=== PATIENT | male | born 1970 | race Caucasian/White ===

== ENCOUNTER 2020-01-01 13:01 | Inpatient (IN) | payer MEDICAID, OTHER ==
[~2020-01-01] VITALS: Ht 175.3 cm; Wt 96.2 kg
[2020-01-01] MEDS ORDERED: NITROGLYCERIN 0.4MG TABLET SL SL PRN (14:15)
[2020-01-01] MEDS ORDERED: ASPIRIN 81MG TABLET PO ONE (14:15)
[2020-01-01 14:50] LABS: BASOPHILS % 0.5 % (0.0-2.0); HEMATOCRIT. 40.4 % (42.0-52.0); HEMOGLOBIN. 14.2 g/dL (14.0-18.0); LYMPHOCYTES % 7.2 % (20.0-50.0); MEAN CORPUSCULAR HEMOGLOBIN 33.4 pg (28.0-32.0); MEAN CORPUSCULAR VOLUME 94.8 fL (80.0-94.0); MONOCYTES % 6.9 % (2.0-8.0); NEUTROPHILS % 85.4 % (40.0-76.0); PLATELET 215 x1000/uL (130-400); RED BLOOD CELL COUNT 4.26 mill/uL (4.7-6.1); RED CELL DISTRIBUTION WIDTH 13.1 % (11.6-14.6)
[2020-01-01 14:55] LABS: CHLORIDE 100 mEq/L (98-107)
[2020-01-01] MEDS ORDERED: AZITHROMYCIN 500 MG in DEXT 5% WATER 250 ML IV STA (14:58)
[2020-01-01] MEDS ORDERED: SODIUM CHLORIDE 0.9% 1000ML BAG (SEPSIS BOLUS) IV ONE (15:00)
[2020-01-01] MEDS ORDERED: POTASSIUM CHLORIDE 20MEQ TABLET SR PO ONE (15:30)
[2020-01-01] MEDS ORDERED: OSELTAMIVIR 75MG CAPSULE PO ONE (16:00)
[2020-01-01] MEDS ORDERED: MORPHINE SULFATE 2 MG/ML CPJ (NOT FOR IM USE) IV ONE (16:00)
[2020-01-01] MEDS ORDERED: ONDANSETRON HCL 4MG/2ML INJ IV PRN (16:45)
[2020-01-01 18:08] LABS: CLARITY URINE CLEAR (CLEAR); COLOR URINE ORANGE (YELLOW); KETONES URINE 2+ (NEGATIVE); LEUKOCYTE ESTERASE URINE 1+ (NEGATIVE); NITRITE URINE POSITIVE (NEGATIVE); OCCULT BLOOD URINE NEGATIVE (NEGATIVE); PH URINE 5.5 (4.5-8.0); PROTEIN URINE 2+ (NEGATIVE); SPECIFIC GRAVITY URINE 1.031 (1.005-1.030)
[2020-01-01] MEDS ORDERED: VANCOMYCIN 1500MG in DEXTROSE 5% WATER 250ML IV NR (20:00)
[2020-01-01 20:20] VITALS: BP 104/65
[2020-01-01] MEDS: SODIUM CHLORIDE 0.9% 1,000 ML IV SCH (21:55)
[2020-01-01] MEDS: HEPARIN 5000 UNITS/ML VIAL SUBCUT SCH (21:56)
[2020-01-01] MEDS: PIPERACILLIN/TAZOBACTAM 3.375 G in DEXT 5% WATER 100 ML IV SCH (22:02)
[2020-01-02 00:05] VITALS: BP 112/73
[2020-01-02] MEDS: PIPERACILLIN/TAZOBACTAM 3.375 G in DEXT 5% WATER 100 ML IV SCH ×5 (03:05→21:31)
[2020-01-02] MEDS: ACETAMINOPHEN 325MG TABLET PO PRN (03:06)
[2020-01-02] MEDS ORDERED: VANCOMYCIN 1,000 MG in DEXT 5% WATER 250 ML IV SCH (04:00)
[2020-01-02 04:02] VITALS: BP 106/53
[2020-01-02] MEDS: SODIUM CHLORIDE 0.9% 1,000 ML IV SCH ×2 (05:10→15:02)
[2020-01-02 08:00] VITALS: BP 121/73
[2020-01-02] MEDS: HEPARIN 5000 UNITS/ML VIAL SUBCUT SCH ×2 (08:50→21:29)
[2020-01-02 11:55] LABS: BASOPHILS % 0.2 % (0.0-2.0); EOSINOPHILS % 0.1 % (0.0-5.0); HEMATOCRIT. 35.7 % (42.0-52.0); HEMOGLOBIN. 12.6 g/dL (14.0-18.0); LYMPHOCYTES % 9.2 % (20.0-50.0); MEAN CORPUSCULAR HEMOGLOBIN 33.4 pg (28.0-32.0); MEAN CORPUSCULAR VOLUME 94.6 fL (80.0-94.0); MONOCYTES % 6.8 % (2.0-8.0); NEUTROPHILS % 83.7 % (40.0-76.0); PLATELET 222 x1000/uL (130-400); RED BLOOD CELL COUNT 3.77 mill/uL (4.7-6.1); RED CELL DISTRIBUTION WIDTH 12.7 % (11.6-14.6)
[2020-01-02 12:00] VITALS: BP 109/60
[2020-01-02 12:00] LABS: CHLORIDE 105 mEq/L (98-107)
[2020-01-02 12:06] LABS: LDL CHOLESTEROL 67 mg/dL (5-100)
[2020-01-02 12:09] LABS: HDL CHOLESTEROL 21 mg/dL (40-59)
[2020-01-02] MEDS: VANCOMYCIN 1,000 MG in DEXT 5% WATER 250 ML IV SCH ×2 (15:01→22:53)
[2020-01-02 16:00] VITALS: BP 116/70
[2020-01-02] MEDS: ASCORBIC ACID 500 MG TABLET PO SCH (21:26)
[2020-01-02] MEDS: HYDROXYCHLOROQUINE SULFATE 200MG TABLET PO SCH (21:26)
[2020-01-02] MEDS ORDERED: PIPERACILLIN/TAZOBACTAM 3.375 G in DEXT 5% WATER 100 ML IV SCH (22:30)
[2020-01-03] VITALS: BP 101/62
[2020-01-03] MEDS: ACETAMINOPHEN 325MG TABLET PO PRN (00:58)
[2020-01-03] MEDS: PIPERACILLIN/TAZOBACTAM 3.375 G in DEXT 5% WATER 100 ML IV SCH ×2 (02:56→09:28)
[2020-01-03 04:00] VITALS: BP 103/65
[2020-01-03 06:07] LABS: CHLORIDE 105 mEq/L (98-107)
[2020-01-03 06:18] LABS: BASOPHILS % 0.2 % (0.0-2.0); EOSINOPHILS % 0.2 % (0.0-5.0); HEMATOCRIT. 36.6 % (42.0-52.0); HEMOGLOBIN. 12.8 g/dL (14.0-18.0); LYMPHOCYTES % 12.3 % (20.0-50.0); MEAN CORPUSCULAR HEMOGLOBIN 33.2 pg (28.0-32.0); MEAN CORPUSCULAR VOLUME 94.6 fL (80.0-94.0); MEAN PLATELET VOLUME 8.1 fl (7.4-10.4); MONOCYTES % 9.4 % (2.0-8.0); NEUTROPHILS % 77.9 % (40.0-76.0); PLATELET 239 x1000/uL (130-400); RED BLOOD CELL COUNT 3.87 mill/uL (4.7-6.1)
[2020-01-03 06:21] LABS: VANCOMYCIN TROUGH 7.7 ug/mL (5.0-10.0)
[2020-01-03] MEDS: VANCOMYCIN 1,000 MG in DEXT 5% WATER 250 ML IV SCH (06:47)
[2020-01-03 08:00] VITALS: BP 114/57
[2020-01-03] MEDS: HYDROXYCHLOROQUINE SULFATE 200MG TABLET PO SCH ×2 (09:22→20:54)
[2020-01-03] MEDS: ASCORBIC ACID 500 MG TABLET PO SCH ×4 (09:22→17:49)
[2020-01-03] MEDS: HEPARIN 5000 UNITS/ML VIAL SUBCUT SCH ×2 (09:22→20:54)
[2020-01-03] MEDS: SODIUM CHLORIDE 0.9% 1,000 ML IV SCH (09:23)
[2020-01-03] MEDS: ZINC SULFATE 220 MG ( 50 ) CAPSULE PO SCH (09:23)
[2020-01-03] MEDS ORDERED: AZITHROMYCIN 500 MG TABLET PO NR (10:00)
[2020-01-03] MEDS ORDERED: POTASSIUM CHLORIDE 20MEQ/PACKET PO NR (10:30)
[2020-01-03] MEDS ORDERED: GUAIFENESIN-DM 200MG-20MG/10ML UDC PO PRN (11:15)
[2020-01-03 12:00] VITALS: BP 130/62
[2020-01-03 13:11] LABS: CREATINE KINASE MB FRACTION < 1.0 ng/mL (0.5-3.6)
[2020-01-03] MEDS: THIAMINE HCL 200 MG in SODIUM CHLORIDE 0.9% 98 ML IV SCH ×2 (13:17→16:38)
[2020-01-03] MEDS: CEFTRIAXONE 1 G PREMIX 50 ML IV SCH (13:18)
[2020-01-03 16:00] VITALS: BP 137/94
[2020-01-03 20:00] VITALS: BP 115/67
[2020-01-04] VITALS (7 sets, daily range): BP systolic 97–115; BP diastolic 54–77
[2020-01-04] MEDS: ASCORBIC ACID 500 MG TABLET PO SCH ×5 (01:23→23:40)
[2020-01-04 06:37] LABS: BASOPHILS % 0.1 % (0.0-2.0); EOSINOPHILS % 0.9 % (0.0-5.0); HEMATOCRIT. 41.3 % (42.0-52.0); HEMOGLOBIN. 14.6 g/dL (14.0-18.0); LYMPHOCYTES % 8.8 % (20.0-50.0); MEAN CORPUSCULAR HEMOGLOBIN 33.9 pg (28.0-32.0); MEAN CORPUSCULAR VOLUME 95.9 fL (80.0-94.0); MONOCYTES % 9.9 % (2.0-8.0); NEUTROPHILS % 80.3 % (40.0-76.0); PLATELET 318 x1000/uL (130-400); RED BLOOD CELL COUNT 4.31 mill/uL (4.7-6.1)
[2020-01-04 06:44] LABS: CHLORIDE 104 mEq/L (98-107)
[2020-01-04] MEDS: HEPARIN 5000 UNITS/ML VIAL SUBCUT SCH ×2 (09:12→23:40)
[2020-01-04] MEDS: THIAMINE HCL 200 MG in SODIUM CHLORIDE 0.9% 98 ML IV SCH (09:12)
[2020-01-04] MEDS: ZINC SULFATE 220 MG ( 50 ) CAPSULE PO SCH (09:13)
[2020-01-04] MEDS: HYDROXYCHLOROQUINE SULFATE 200MG TABLET PO SCH ×2 (09:13→23:39)
[2020-01-04] MEDS: AZITHROMYCIN 250 MG TABLET PO SCH (09:13)
[2020-01-04] MEDS: CEFTRIAXONE 1 G PREMIX 50 ML IV SCH (12:05)
[2020-01-04] MEDS ORDERED: HYDR200T35 PO (14:27)
[2020-01-04] MEDS ORDERED: ASCO500T20 PO (14:27)
[2020-01-04] MEDS ORDERED: THIA100T72 PO (14:27)
[2020-01-04] MEDS ORDERED: AZIT250T12 PO (14:27)
[2020-01-04] MEDS ORDERED: TUSSL PO (14:27)
[2020-01-04] MEDS ORDERED: ZINC220C2 PO (14:27)
[2020-01-04] MEDS ORDERED: TOPUD PO (14:27)
[2020-01-04] MEDS: ACETAMINOPHEN 325MG TABLET PO PRN (15:53)
[2020-01-04] MEDS ORDERED: IBUPROFEN 600MG TABLET PO PRN (16:30)
[2020-01-04] MEDS: THIAMINE HCL 100MG TABLET PO SCH (16:57)
[2020-01-05] VITALS: BP 110/60
[2020-01-05] MEDS: ACETAMINOPHEN 325MG TABLET PO PRN (01:23)
[2020-01-05 04:00] VITALS: BP 102/64
[2020-01-05] MEDS: ASCORBIC ACID 500 MG TABLET PO SCH ×2 (06:00→11:12)
[2020-01-05 08:00] VITALS: BP 97/59
[2020-01-05] MEDS: ZINC SULFATE 220 MG ( 50 ) CAPSULE PO SCH (08:05)
[2020-01-05] MEDS: HEPARIN 5000 UNITS/ML VIAL SUBCUT SCH (08:05)
[2020-01-05] MEDS: HYDROXYCHLOROQUINE SULFATE 200MG TABLET PO SCH (08:05)
[2020-01-05] MEDS: THIAMINE HCL 100MG TABLET PO SCH (08:05)
[2020-01-05] MEDS: AZITHROMYCIN 250 MG TABLET PO SCH (08:10)
[2020-01-05] MEDS: CEFTRIAXONE 1 G PREMIX 50 ML IV SCH (11:00)
[2020-01-05 12:00] VITALS: BP 114/78
== END 2020-01-05 12:32 | disposition home or self-care (01) | DRG 720 ==
LOC: ER 13:01 → 7EST 15:54 → EDBEDREQ 16:05 → EDBEDREQTM 16:20 → ENRESERV 16:42
PROVIDERS: ADMIT Internal Medicine; ATTEND Internal Medicine
DX: A41.89 Other specified sepsis (principal); U07.1 COVID-19; J96.00 Acute respiratory failure, unspecified whether with hypoxia or hypercapnia; E88.09 Other disorders of plasma-protein metabolism, not elsewhere classified; J12.89 Other viral pneumonia; D72.810 Lymphocytopenia; I10 Essential (primary) hypertension; E87.6 Hypokalemia; R74.0 Nonspecific elevation of levels of transaminase and lactic acid dehydrogenase [LDH]
CPT/HCPCS: 36415; 71045; 80048; 80053; 80061; 80202; 81003; 82553; 82728; 83036; 83605; 83615; 83735; 83880; 84100; 84145; 84484; 85025; 85379; 87420; 87635; 87804; 93005; 99285; J0456; J0696; J1644; J2270; J2543; J3370; J3411; J7030; J7050; J7060